=== PATIENT | male | born 1940 | race Caucasian/White ===

== ENCOUNTER → 2018-08-01 | Outpatient (CLI) | payer OTHER | END | disposition home or self-care (01) | LOC: CARD 08:32 | PROVIDERS: ATTEND Student in an Organized Health Care Education/Training Program | DX: Z02.9 Encounter for administrative examinations, unspecified (principal) ==

== ENCOUNTER → 2018-08-01 | Outpatient (CLI) | payer OTHER | END | disposition home or self-care (01) | LOC: CARD 08:13 → MERGE 09:00 | PROVIDERS: ATTEND Nurse Practitioner Acute Care | DX: F02.80 Dementia in other diseases classified elsewhere, unspecified severity, without behavioral disturbance, psychotic disturbance, mood disturbance, and anxiety (principal); I10 Essential (primary) hypertension; E78.5 Hyperlipidemia, unspecified; E55.9 Vitamin D deficiency, unspecified | CPT/HCPCS: 95819 ==

== ENCOUNTER 2020-02-13 12:29 | Observation (INO) | payer MEDICARE, OTHER ==
[2020-02-12 10:26] LABS: BASOPHILS # (AUTO) 0.03 x10^3/uL (0-0.1); BASOPHILS % (AUTO) 0 % (0-1); EOSINOPHILS # (AUTO) 0.06 x10^3/uL (0-0.4); EOSINOPHILS % (AUTO) 1 % (1-7); LYMPHOCYTES % (AUTO) 18 % (22-44); MD NO; MEAN CORPUSCULAR HEMOGLOBIN 30.6 pg (27.5-34.5); MEAN CORPUSCULAR HGB CONC 33.1 g/dL (33.2-36.2); MEAN CORPUSCULAR VOLUME 92.6 fL (81-97); MONOCYTES # (AUTO) 0.66 x10^3/uL (0.2-0.8); MONOCYTES % (AUTO) 7 % (2-9); NEUTROPHILS # (AUTO) 6.64 x10^3/uL (1.8-6.8); NEUTROPHILS % (AUTO) 74 % (42-75); PLATELET COUNT 176 x10^3/uL (130-400); RED BLOOD COUNT 5.19 x10^6/uL (4.38-5.82); RED CELL DISTRIBUTION WIDTH 14.6 % (9.4-14.8)
[2020-02-12 10:35] LABS: ANION GAP 5 mmol/L (5-15); CALCIUM 9.1 mg/dL (8.5-10.1); CHLORIDE 110 mmol/L (98-107); CREATININE 1.18 mg/dL (0.7-1.3)
[~2020-02-13] VITALS: Ht 167.6 cm; Wt 87.6 kg
[~2020-02-13 12:29] MED LIST: AMLO10TA8 PO; APIX5TAB PO; DONE10TA7 PO; ROSU20TA2 PO
[2020-02-13] MEDS ORDERED: SODIUM CHLORIDE 0.9% 1,000 ML IV SCH (13:47)
[2020-02-13] MEDS ORDERED: CHOL10003 PO (14:08)
[2020-02-13] MEDS ORDERED: FENTANYL PF 100 MCG/2ML ONE (14:31)
[2020-02-13] MEDS ORDERED: MIDAZOLAM 1 MG/ML, 5ML ONE (14:31)
[2020-02-13] MEDS ORDERED: CEFAZOLIN PMX 1GM/50ML 50 ML ONE (14:31)
[2020-02-13] MEDS ORDERED: CEFAZOLIN 1,000 MG ONE (14:32)
[2020-02-13] MEDS ORDERED: LIDOCAINE 2%, 20ML ONE (14:32)
[2020-02-13 16:57] VITALS: BP 169/77
[2020-02-13] MEDS ORDERED: HYDROcodone/APAP 5/325 TABLET PO PRN (17:00)
[2020-02-13] MEDS ORDERED: ACETAMINOPHEN 325 MG TABLET PO PRN (17:00)
[2020-02-13] MEDS ORDERED: HOLD MEDICATION MC PRN (17:00)
[2020-02-13] MEDS: AMLODIPINE 10 MG TAB PO SCH (18:32)
[2020-02-13 19:13] VITALS: BP 144/84
[2020-02-13] MEDS: SODIUM CHLORIDE FLUSH 10ML SYR IVF SCH (20:48)
[2020-02-14 01:00] VITALS: BP 140/88
[2020-02-14 07:25] VITALS: BP 148/76
[2020-02-14] MEDS ORDERED: CEFAZOLIN 1,000 MG ONE (07:29)
[2020-02-14] MEDS ORDERED: CEFAZOLIN PMX 1GM/50ML 50 ML ONE (07:29)
[2020-02-14] MEDS ORDERED: FENTANYL PF 100 MCG/2ML ONE (07:29)
[2020-02-14] MEDS ORDERED: LIDOCAINE 2%, 20ML ONE (07:29)
[2020-02-14 08:53] VITALS: BP 157/94
[2020-02-14] MEDS: AMLODIPINE 10 MG TAB PO SCH (09:00)
[2020-02-14] MEDS: SODIUM CHLORIDE FLUSH 10ML SYR IVF SCH ×2 (09:00→21:00)
[2020-02-14 13:45] VITALS: BP 123/79
[2020-02-14 19:54] VITALS: BP 149/89
[2020-02-15 01:42] VITALS: BP 158/97
[2020-02-15 07:48] VITALS: BP 138/84
[2020-02-15] MEDS: SODIUM CHLORIDE FLUSH 10ML SYR IVF SCH (09:00)
[2020-02-15] MEDS: AMLODIPINE 10 MG TAB PO SCH (09:00)
[2020-02-15] MEDS ORDERED: ACET325T26 PO (09:01)
== END 2020-02-15 11:33 | disposition home or self-care (01) ==
LOC: CACL 12:29 → ORIP 16:37 → INTOOBSV 16:37 → 5SO 16:50 → DCLOUNGE 02-15 11:27
PROVIDERS: ADMIT Internal Medicine Clinical Cardiac Electrophysiology; ATTEND Internal Medicine Clinical Cardiac Electrophysiology
DX: I49.5 Sick sinus syndrome (principal); I48.0 Paroxysmal atrial fibrillation; D68.69 Other thrombophilia; Z79.899 Other long term (current) drug therapy; Z79.01 Long term (current) use of anticoagulants
CPT/HCPCS: 33208; 33215; 33286; 36005; 36415; 71045; 71046; 80048; 85025; 93005; 99156; 99157; C1769; C1779; C1785; C1892; C1894; G0378; J0690; J2250; J3010; J3490; Q9967